=== PATIENT | male | born 1975 | race Caucasian/White ===

== ENCOUNTER 2024-10-15 21:03 | Emergency (ER) | payer OTHER, SELFPAY ==
[2024-10-15 21:12] VITALS: BP 127/97
[2024-10-15 21:29] LABS: % Basophils 0.4 % (0-2); % Eosinophils 0.9 % (0-6); % Immature Granulocytes 0.3 % (0-0.5); % Lymphocytes 19.2 % (20.5-51.1); % Monocytes 8.4 % (1.7-9.3); % Neutrophils 70.8 % (42.2-75.2); Absolute Basophils 0.1 10^3/uL (0-0.2); Absolute Eosinophils 0.1 10^3/uL (0-0.7); Absolute Lymphocytes 2.2 10^3/uL (1.2-3.4); Absolute Monocytes 0.9 10^3/uL (0.1-0.6); Absolute Neutrophils 7.9 10^3/uL (1.4-6.5); Hematocrit 40.9 % (39.0-52.0); Hemoglobin 15.1 g/dL (13.0-18.0); Mean Corp Hgb Conc. 36.9 g/dL (33.0-37.0); Mean Corpuscular Hgb 31.2 pg (27.0-31.0); Mean Corpuscular Volume 84.5 fL (80.0-94.0); Mean Platelet Volume 9.9 fL (7.4-10.4); Nucleated Red Blood Cells % 0 % (-); Platelet Count 209 10^3/uL (130-400); Red Blood Cell Count 4.84 10^6/uL (4.70-6.10); Red Cell Dist. Width 12.3 % (11.5-14.5); White Blood Cell Count 11.2 10^3/uL (4.8-10.8)
[2024-10-15 21:49] LABS: ALT (SGPT) 26 U/L (0-50); AST (SGOT) 23 U/L (17-59); Albumin 4.3 g/dl (3.5-5.0); Alkaline Phosphatase 55 U/L (38-126); Blood Urea Nitrogen 28 mg/dl (9-20); Calcium 9.8 mg/dl (8.4-10.2); Carbon Dioxide 25 mmol/L (22-30); Chloride 108 mmol/L (98-107); Glucose 91 mg/dl (70-99); Potassium 4.2 mmol/L (3.5-5.1); Sodium 141 mmol/L (135-145); Total Bilirubin 0.6 mg/dl (0.2-1.3); Total Protein 7.2 g/dl (6.3-8.2); eGFR > 60.00
[2024-10-15 21:52] LABS: Troponin I < 0.012 ng/ml
[2024-10-15 23:38] VITALS: BP 128/78
--- NOTE | 2024-10-16 00:22 | ED.GENMED ---
History of Present Illness
General
Chief Complaint: Heart Rate Problem
Source: patient
Exam Limitations: none
Time Seen by Provider: 10/16/24 00:00
History of Present Illness
History of Present Illness:
49yoM with a history of hypertension, hypothyroidism, and sleep apnea with recent insertion of Inspire device presenting with his for evaluation of elevated heart rate. Patient was sitting at home this evening when he got an alert from his
Apple Watch indicating that his heart rate was elevated. Heart rate was reportedly in the 120s while he was resting. He denies any specific symptoms other than malaise. He did report that he felt like his heart rate was fluttering at the time.
He denies any chest pain, shortness of breath, dizziness, syncope, vomiting, fevers. No alcohol or caffeine use today. He was outside working today in the 80 degree weather but states he was hydrating well.
Past History
Past History
ED Past Medical History: HTN and Other (Kidney stones)
Social History
Tobacco: Non-smoker
Personal:
Living: with family
Employment: Employed
Phy Exam
General Physical Exam
General Presentation: well appearing and no apparent distress
General age: appears stated age
General Skin: warm and dry
General Habitus: normal
ENT Exam
ENT Exam: normocephalic
Cardiovascular Exam
Cardiovascular Exam: regular rate/rhythm, no edema, no murmur and normal peripheral pulses
Pulmonary Exam
Pulmonary Exam: lungs clear, no respiratory distress, no rales, no crackles and no rhonchi
Neurological Exam
Neurological Exam: alert
Parminder Coma Scale
Eye Opening: Spontaneous
Verbal Response: Oriented
Motor Response: Obeys Commands
GCS Total Score: 15
Skin Exam
Skin Exam: normal color and warm/dry
Psychiatric Exam
Psychiatric Exam: normal mood/affect
Course
Orders/Labs/Results
Orders:
Orders
10/15/24 21:05
ECG [Electrocardiogram (*1)] Urgent
Reason for Study: Chest Pain
EKG- Treatment ONCE
10/15/24 21:22
Complete Blood Count/With Diff Urgent
Comprehensive Metabolic Panel Urgent
TSH Reflex To Free T4 Urgent
Comment: ADD ON
Troponin I Urgent
10/15/24 23:43
Add On- LAB Urgent
Tests Added?: TSH with reflex to free T4
10/16/24 00:21
Cardiac Monitoring- Treatment ONCE
0.9% Sodium Chloride 1000 ml [Nss] 1,000 ml IV BOLUS
Abnormal Lab Results
10/15/24
21:22
WBC 11.2 H 10^3/uL
(4.8-10.8)
MCH 31.2 H pg
(27.0-31.0)
Absolute Neuts (auto) 7.9 H 10^3/uL
(1.4-6.5)
Absolute Monos (auto) 0.9 H 10^3/uL
(0.1-0.6)
Lymphocytes % 19.2 L %
(20.5-51.1)
Chloride 108 H mmol/L
(98-107)
BUN 28 H mg/dl
(9-20)
10/15/24 21:22
10/15/24 21:22
Vital Signs
Initial and Last Documented VS:
Initial Vital Signs
Temp Pulse Resp BP Pulse Ox
98.8 F 108 18 127/97 99
10/15/24 21:12 10/15/24 21:12 10/15/24 21:12 10/15/24 21:12 10/15/24 21:12
Last Documented Vital Signs
Temp Pulse Resp BP Pulse Ox
98.8 F 81 18 121/89 95
10/15/24 21:12 10/16/24 01:45 10/16/24 01:45 10/16/24 01:00 10/16/24 01:45
MDM/Problems Addressed
Differential Diagnosis Includes:
49yoM here with elevated heart rate. Apple Watch alerted him to high heart rate at rest. Minimally symptomatic. Denies CP/SOB and syncope. HR 108 in triage. Remainder of vitals normal. He is well appearing in no distress. Exam reassuring.
Differential diagnosis includes but is not limited to: arrhythmia, dehydration, electrolyte abnormality, thyroid dysfunction
Initial ED plan: Labs and EKG obtained in triage. EKG shows NSR without ectopy. Electrolytes, renal function, troponin WNL. TSH pending. 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
*EKG
Interpreted by ED Provider?: Yes
EKG Intrepretation Date: 10/15/24
Heart Rate: 96
Rate: normal
Rhythm: sinus
[place]: normal axis
Interval: normal interval
QRS Pattern: normal QRS
Ischemia: no ischemia
*Critical Care Note
Total Time (30-74mins, 75-104mins- exclusive of procedures): Not Applicable
Update Note
Update Note:
TSH within normal limits. Patient monitored on telemetry and no events/arrhythmias noted. He remains in NSR with heart rates in the 80-90 range. He is asymptomatic on reassessment. No indication for hospitalization. He was advised to f/u with his
PCP and ED return precautions discussed. Patient in agreement with plan and was discharged in stable condition.
ED Attending Note
-
Portions of this chart may have been created with voice recognition software.� Occasional wrong word or��sound alike� substitutions may have occurred due to the inherent limitations of voice recognition software.
Discharge Plan
Departure
Patient Disposition: Home (Routine Discharge)
Date of Disposition: 10/16/24
Time of Disposition: 01:52
Patient with high blood pressure during this ER visit?: No
Discharge Problem:
Rapid heart rate
Instructions: Palpitations (DC)
Prescriptions:
No Action
amlodipine 10 MG tablet
10 mg PO DAILY
lisinopril 40 MG tablet
40 mg PO DAILY
fluticasone propionate 1 SPRAY spray,suspension
1 spray intranasal DAILY
tamsulosin 0.4 MG capsule
0.4 mg PO DAILY Qty: 30 0RF
ketorolac 10 MG tablet
10 mg PO Q8HPRN PRN (Reason: pain) Qty: 20 0RF
hydrocodone-acetaminophen 1 EACH tablet
2 ea PO Q6HPRN PRN (Reason: pain) Qty: 30 0RF
Referrals:
Keyonna Boston MD [Family Provider] -
Activity Restrictions/Additional Instructions:
Please follow-up with your family doctor on Thursday. Return to the ER with any new or worsening symptoms.
Interventions
Interventions:
*Risk Screen - Suicide Last Done: 10/15/24 21:12
*General Assessment Last Done: 10/15/24 21:12
*Neglect/Abuse Screening Last Done: 10/15/24 21:12
*ED- Fall Risk Assessment Last Done: 10/16/24 00:24
*ED COVID-19 Vaccine History Last Done: 10/15/24 21:12
*Nursing Disposition Last Done: 10/16/24 01:58
ED- Cardiac Assessment Last Done: 10/16/24 01:34
ED- Pulmonary Assessment Last Done: 10/16/24 01:34
Discharge Date and Time
Discharge Date/Time: 10/16/24 01:58
Print Language: THAI
[2024-10-16 00:24] VITALS: BMI 31.1
[2024-10-16 00:29] VITALS: BP 129/98
[2024-10-16] MEDS: NSS 1000 IV (00:31)
[2024-10-16 01:00] VITALS: BP 121/89
== END 2024-10-16 01:58 | disposition home or self-care (01) ==
LOC: EMR 21:03
PROVIDERS: Emergency Medicine; EMERGENCY PHYSICIAN Emergency Medicine; FAMILY PHYSICIAN Internal Medicine
DX: R00.0 Tachycardia, unspecified (principal); I10 Essential (primary) hypertension; E03.9 Hypothyroidism, unspecified; G47.30 Sleep apnea, unspecified
CPT/HCPCS: 99284; 96360; 80053; 84443; 84484; 85025; 93005